=== PATIENT | male | born 1985 | race Caucasian/White ===

== ENCOUNTER 2017-01-22 18:44 | Emergency (ER) | payer MEDICAID ==
[2017-01-22 18:54] VITALS: PULSE 63; RESP 16; TEMP 98.8; O2SAT 100
[2017-01-22] MEDS ORDERED: Tetracaine 0.5% Ophth 2 ML BOTTLE ONE (19:24)
--- NOTE | 2017-01-22 19:51 | ED PDOC ---
HPI: Eye Injury/Pain Time Seen by Provider: 01/22/17 19:08 Chief Complaint (Nursing): Eye Problem Chief Complaint (Provider): Eye problem History Per: Patient History/Exam Limitations: no limitations Onset/Duration Of Symptoms: Hrs (x4) Current Symptoms Are (Timing): Still Present Injury To Eye?: No Quality: Burning Wears Contact Lens?: No Additional Complaint(s): Adin Ahumada is a 32 year old male, with a past medical history of back problems , who presents to the emergency department complaining of bilateral eye irritation onset for 4 hours. Patient reports working at [email or web address] without eye protection. While in a truck, he felt a burning sensation in his left eye first then in his right eye. Patient denies any fever, chills, nausea, vomit, trauma or injury to eye. No further medical complaints. PMD: None provided. Past Medical History Reviewed: Historical Data, Nursing Documentation, Vital Signs Vital Signs: Last Vital Signs Temp 98.8 F 01/22/17 18:50 Pulse 63 01/22/17 18:50 Resp 16 01/22/17 18:50 BP Pulse Ox 100 01/22/17 18:50 - Medical History PMH: Back Problems - Family History Family History: States: No Known Family Hx - Home Medications Home Medications: Ambulatory Orders Medication Instructions Recorded Acetaminophen with Codeine 1 tab PO Q6H PRN #10 tab 04/02/15 [Tylenol with Codeine No. 3 300 mg-30 mg] Cyclobenzaprine [Cyclobenzaprine 10 mg PO TID PRN #15 tab 04/02/15 HCl] Nitrofurantoin Macrocrystals 100 mg PO BID #14 cap 04/02/15 [Macrobid] Polymyxin/Trimethoprim Sulfate 1 - 2 drop OD TID #1 bottle 01/22/17 [Polytrim Ophth Soln] - Allergies Allergies/Adverse Reactions: Allergies Allergy/AdvReac Type Severity Reaction Status Date / Time No Known Allergies Allergy Verified 04/02/15 02:08 Review of Systems ROS Statement: Except As Marked, All Systems Reviewed And Found Negative Constitutional: Negative for: Fever, Chills Eyes: Positive for: Other (burning sensation to b/l eyes) Gastrointestinal: Negative for: Nausea, Vomiting Physical Exam - Reviewed Nursing Documentation Reviewed: Yes Vital Signs Reviewed: Yes - Physical Exam Appears: Positive for: Non-toxic, No Acute Distress Head Exam: Positive for: ATRAUMATIC, NORMAL INSPECTION, NORMOCEPHALIC Skin: Positive for: Normal Color, Warm, Dry Eye Exam: Positive for: Normal appearance (No hyphema, subconjuctival hemorrhage , and photophobia bilaterally ), EOMI, PERRL, Other. Negative for: Periorbital swelling (no lid swelling) Neck: Positive for: Normal, Painless ROM, Supple Respiratory: Negative for: Respiratory Distress Extremity: Positive for: Normal ROM. Negative for: Pedal Edema, Deformity Neurologic/Psych: Positive for: Alert, Oriented - ECG O2 Sat by Pulse Oximetry: 100 (RA) Pulse Ox Interpretation: Normal Medical Decision Making Medical Decision Making: Initial Impression: bilateral eye irritation Initial Plan: -Fluorescein eye test stain performed. uptake noted to left eye-band of dust noted. right normal exam. lid inversion-no FB noted. no hyphema no subcongtival haemorrhage. Pt strongly advised to have ophthalmology f.u [facility] and given eye patch for protection and polytrim. Scribe Attestation: Documented by Joshua Jones, acting as a scribe for Abigail UGALDE. Provider Scribe Attestation: All medical record entries made by the Scribe were at my direction and personally dictated by me. I have reviewed the chart and agree that the record accurately reflects my personal performance of the history, physical exam, medical decision making, and the department course for this patient. I have also personally directed, reviewed, and agree with the discharge instructions and disposition. Disposition - Clinical Impression Clinical Impression: Dust exposure, Foreign body in eye - Patient ED Disposition Is Patient to be Admitted: No - Disposition Referrals: Giovanny Khan MD [Staff Provider] - Disposition: Routine/Home Disposition Time: 23:24 Condition: STABLE Prescriptions: Polymyxin/Trimethoprim Sulfate [Polytrim Ophth Soln] 1 - 2 drop OD TID #1 bottle Instructions: Eye Foreign Body (ED) Forms: [facility] (Yoruba), [facility] ED School/Work Excuse
== END 2017-01-22 20:21 | disposition home or self-care (01) ==
LOC: H.ER 18:44
DX: T15.92XA Foreign body on external eye, part unspecified, left eye, initial encounter (principal); Z77.118 Contact with and (suspected) exposure to other environmental pollution